=== PATIENT | male | born 1960 | race Caucasian/White ===

== ENCOUNTER 2020-10-25 19:24 | Emergency (ER) | payer SELFPAY ==
[~2020-10-25] VITALS: Ht 180.3 cm; Wt 104.3 kg
[2020-10-25 23:40] VITALS: BP 113/72
[2020-10-26] MEDS ORDERED: KETOROLAC TROMETH 60MG/2ML VIAL IM ONE
== END 2020-10-26 00:14 | disposition home or self-care (01) ==
LOC: ER 19:24
DX: S46.911A Strain of unspecified muscle, fascia and tendon at shoulder and upper arm level, right arm, initial encounter (principal); V29.9XXA Motorcycle rider (driver) (passenger) injured in unspecified traffic accident, initial encounter; Y93.89 Activity, other specified; Y92.89 Other specified places as the place of occurrence of the external cause; Y99.8 Other external cause status
CPT/HCPCS: 70450; 71250; 72125; 74176; 96372; 99285; J1885